=== PATIENT | male | born 1945 | race Caucasian/White ===

== ENCOUNTER 2023-02-04 13:55 | Observation (INO) ==
[2023-02-04] MEDS ORDERED: IOPAMIDOL 100 ML BOTTLE IV ONE (13:56)
[2023-02-04] MEDS ORDERED: ASPIRIN 81 MG TAB.CHEW CHEWED ONE (14:14)
[2023-02-04 14:50] LABS: POC Calcium, Ionized 1.26 (1.16-1.32); POC Potassium 3.9 (3.3-5.1)
[2023-02-04 15:12] LABS: Basophils # (Auto) 0.01 K/mcL (0.00-0.30); Basophils % (Auto) 0.2 % (0.0-2.0); Eosinophils # (Auto) 0.09 K/mcL (0.00-0.70); Eosinophils % (Auto) 1.7 % (0.0-7.0); Hematocrit 34.2 % (40.1-51.0); Lymphocytes # (Auto) 0.72 K/mcL (1.50-4.80); Lymphocytes % (Auto) 13.6 % (15.5-49.0); Mean Cell Volume 88.6 fL (80.0-100.0); Mean Corpuscular HGB Conc 32.2 g/dL (31.0-36.0); Mean Platelet Volume 12.1 fL (8.8-12.5); Monocytes # (Auto) 0.38 K/mcL (0.10-0.90); Monocytes % (Auto) 7.2 % (1.0-12.0); Neutrophils % (Auto) 76.9 % (38.0-78.0); Platelet Count 132 K/mcL (140-440); RBC 3.86 M/mcL (4.63-6.08); Red Cell Distribution Width 14.4 % (11.5-14.5); WBC 5.3 K/mcL (4.5-11.0)
[2023-02-04 15:27] LABS: proBNP 280.5 pg/mL (<450.0)
[2023-02-04] MEDS ORDERED: HEPARIN 5,000 UNIT/ML VIAL IV ONE (18:27)
[2023-02-04] MEDS ORDERED: HEPARIN SOD,PORK IN 0.45% NACL 25,000 UNIT in PREMIX 1 BAG IV SCH (18:30)
[2023-02-04 19:20] LABS: Partial Thromboplastin Time 29.3 sec (20.0-37.0)
[2023-02-04] MEDS ORDERED: POLYETHYLENE GLYCOL 3350 17 GM PACKET PO PRN (22:01)
[2023-02-04] MEDS ORDERED: ACETAMINOPHEN 325 MG TABLET PO PRN (22:01)
[2023-02-04] MEDS ORDERED: DEXTROSE 50% 50 ML VIAL IV PRN (22:01)
[2023-02-04] MEDS ORDERED: POTASSIUM CHLORIDE 20 MEQ TABLET PO PRN ×2 (22:01)
[2023-02-04] MEDS ORDERED: IPRATROPIUM/ALBUTEROL 3 ML AMPUL.NEB NEB PRN (22:01)
[2023-02-04] MEDS ORDERED: ENALAPRILAT 1.25 MG/ML VIAL IV PRN (22:01)
[2023-02-04] MEDS ORDERED: ONDANSETRON 4 MG/2 ML VIAL IV PRN (22:01)
[2023-02-04] MEDS ORDERED: POTASSIUM CHLORIDE 40 MEQ in DEXTROSE 5% IN WATER 500 ML IV PRN (22:01)
[2023-02-04] MEDS ORDERED: SENNOSIDES 1 TABLET PO PRN (22:01)
[2023-02-04] MEDS ORDERED: MAGNESIUM SULFATE 2 GM/50 ML BAG IV PRN (22:01)
[2023-02-04] MEDS ORDERED: DEXTROSE 31 GM ORAL.SUSP PO PRN (22:01)
[2023-02-04] MEDS: 0.9 % SODIUM CHLORIDE 1,000 ML IV SCH (22:29)
[2023-02-05] MEDS ORDERED: ACETAMINOPHEN 325 MG TABLET PO ONE (03:48)
[2023-02-05] MEDS: 0.9 % SODIUM CHLORIDE 1,000 ML IV SCH (05:22)
[2023-02-05] MEDS ORDERED: OMEPRAZOLE 20 MG CAPSULE PO SCH (07:30)
[2023-02-05] MEDS ORDERED: INSULIN LISPRO 1 UNIT/0.01 ML UNIT SQ SCH (07:30)
[2023-02-05] MEDS ORDERED: APIXABAN 5 MG TABLET PO ONE (08:26)
[2023-02-05] MEDS ORDERED: LOSARTAN 25 MG TABLET PO SCH (09:00)
[2023-02-05] MEDS ORDERED: ATORVASTATIN 40 MG TABLET PO SCH (09:00)
[2023-02-05] MEDS ORDERED: TAMSULOSIN 0.4 MG CAPSULE PO SCH (09:00)
[2023-02-05] MEDS ORDERED: GABAPENTIN 300 MG CAPSULE PO SCH (09:00)
== END 2023-02-05 11:50 | disposition home or self-care (01) ==
LOC: ED 13:55 → INTOOBSV 21:48 → ICU 21:48
PROVIDERS: ADMIT Internal Medicine; ATTEND Internal Medicine